=== PATIENT | male | born 1995 | race Caucasian/White ===

== ENCOUNTER 2019-03-25 11:15 | Emergency (ER) | payer OTHER, BC ==
[~2019-03-25] VITALS: Ht 182.9 cm; Wt 78.0 kg
[~2019-03-25 11:15] MED LIST: BENTYL10 MG; DIASTAT2.5 MG RC; KEPPRA250 MG PO; OMEPRAZOLE 20 M20 M1; PHENERGAN 25 MG25 M1 PO; ZANTAC 150MG T150 M1
[2019-03-25] MEDS ORDERED: IBUPROFEN 800800 M1 PO (13:10)
[2019-03-25] MEDS ORDERED: NORCO 5-325 TA1 EAC1 PO (13:10)
[2019-03-25 13:27] VITALS: BP 140/82
== END 2019-03-25 13:29 | disposition home or self-care (01) ==
LOC: M.ERS 11:15
DX: S32.2XXA Fracture of coccyx, initial encounter for closed fracture (principal); W18.39XA Other fall on same level, initial encounter; Y93.89 Activity, other specified; Y92.89 Other specified places as the place of occurrence of the external cause; Y99.0 Civilian activity done for income or pay